=== PATIENT | male | born 1965 | race Caucasian/White ===

== ENCOUNTER 2019-05-03 17:31 | Emergency (ER) | payer OTHER ==
[~2019-05-03] VITALS: Ht 182.9 cm; Wt 130.6 kg
[2019-05-03 17:40] VITALS: BP 165/94
--- NOTE | 2019-05-03 18:03 | NUR ---
PATIENT AMBULATED TO BED 2
--- NOTE | 2019-05-03 18:07 | NUR ---
PATIENT PRESENTS TO ED WITH LEFT EAR PAIN, THROAT PAIN, PAINFUL SWALLOWING, HEADACHE X 2 DAYS. TOOK AMOXILLIN 500 MG AND IBUPROFEN 800MG LAST DOSE 1000. PATIENT STATES PAIN OF 8/10 AT THIS TIME; VSS; PATIENT POSITIONED FOR COMFORT; HOB ELEVATED; BEDRAILS UP X2; BED DOWN. ER MD MADE AWARE OF PT STATUS.
--- NOTE | 2019-05-03 18:20 | NUR ---
Patient being evaluated by physician at bedside.
[2019-05-03] MEDS ORDERED: KETOROLAC 60 MG/2 ML VIAL IM ONE (18:25)
[2019-05-03 19:14] VITALS: BP 148/88
--- NOTE | 2019-05-03 19:14 | NUR ---
Patient discharged with v/s stable. Written and verbal after care instructions given and explained. Rx of IBUPROFEN, CIPRODEX, AMOXICILLIN given. Patient educated on indication of medication including possible reaction and side effects. All questions addressed prior to discharge. ID band removed. Patient advised to follow up with PMD.
== END 2019-05-03 19:14 | disposition home or self-care (01) ==
LOC: MED 17:31
DX: H92.02 Otalgia, left ear (principal); R03.0 Elevated blood-pressure reading, without diagnosis of hypertension; J02.9 Acute pharyngitis, unspecified
CPT/HCPCS: 96372; 99283; J1885

== ENCOUNTER 2020-06-15 02:33 | Emergency (ER) | payer OTHER ==
[~2020-06-15] VITALS: Ht 182.9 cm; Wt 127.0 kg
[2020-06-15 02:45] VITALS: BP 147/83
--- NOTE | 2020-06-15 02:45 | NUR ---
PT IN BED 3 WITH SON AND AT BEDSIDE.
--- NOTE | 2020-06-15 03:08 | NUR ---
54 Y/O MALE PT BIB SELF FOR C/O ANXIETY X A FEW HOURS. PER PT HAD TO PERFORM CPR ON SON AND NOW IS TEARFUL AND WANTS TO BE EVALUATED. DENIES PAIN, FEVER, COUGH. MEDHX: ANXIETY NKA
[2020-06-15 03:11] LABS: BASOPHILS # (AUTO) 0.1 K/uL (0.00-0.22); BASOPHILS % (AUTO) 0.5 % (0.0-2.0); EOSINOPHILS # (AUTO) 0.5 K/uL (0-0.4); EOSINOPHILS % (AUTO) 4.2 % (0.0-4.0); HEMATOCRIT 43.8 % (36-52); HEMOGLOBIN 14.6 g/dL (12.0-18.0); LYMPHOCYTES # (AUTO) 1.9 K/uL (2.0-11.5); LYMPHOCYTES % (AUTO) 15.7 % (20.5-51.1); MEAN CORPUSCULAR HEMOGLOBIN 31 pg (27-31); MEAN CORPUSCULAR HGB CONC 33 g/dL (33-37); MEAN CORPUSCULAR VOLUME 91.3 fL (80-94); MONOCYTES # (AUTO) 0.7 K/uL (0.8-1.0); MONOCYTES % (AUTO) 6.1 % (1.7-9.3); NEUTROPHILS # (AUTO) 8.9 K/uL (1.8-7.7); NEUTROPHILS % (AUTO) 73.5 % (42.2-75.2); PLATELET COUNT (AUTO) 181 K/uL (140-450); RED CELL DISTRIBUTION WIDTH 12.6 % (11.6-13.7); WHITE BLOOD COUNT (AUTO) 12.1 K/uL (4.8-10.8)
[2020-06-15 03:33] LABS: CHOL/HDL RATIO 7.5 (1-4.5)
[2020-06-15 03:41] LABS: ALBUMIN 3.9 g/dL (3.4-5.0); ANION GAP 15.9 (8-16); CARBON DIOXIDE 24.1 mmol/L (21-32); CREATININE 1.8 mg/dL (0.6-1.3); TOTAL BILIRUBIN 0.3 mg/dL (0.0-1.0)
[2020-06-15 03:47] LABS: CREATINE KINASE MB 1.4 ng/mL (0-3.6)
--- NOTE | 2020-06-15 03:58 | NUR ---
DR MYERS AT BEDSIDE
[2020-06-15 04:00] VITALS: BP 147/83
--- NOTE | 2020-06-15 04:00 | NUR ---
Patient discharged with v/s stable. Written and verbal after care instructions given and explained. Patient alert, oriented and verbalized understanding of instructions. Ambulatory with steady gait. All questions addressed prior to discharge. ID band removed. Patient advised to follow up with PMD. Opportunity to ask questions provided and answered.
== END 2020-06-15 04:00 | disposition home or self-care (01) ==
LOC: MED 02:33
DX: F41.9 Anxiety disorder, unspecified (principal)
CPT/HCPCS: 36415; 71045; 80053; 82550; 82553; 83880; 84484; 85025; 85379; 93005; 99285

== ENCOUNTER 2022-02-20 22:09 | Emergency (ER) | payer OTHER ==
[~2022-02-20] VITALS: Ht 182.9 cm; Wt 133.8 kg
[2022-02-20 22:20] VITALS: BP 147/99
--- NOTE | 2022-02-20 22:32 | NUR ---
Wheel chair to bed 5.
--- NOTE | 2022-02-20 23:15 | NUR ---
ERMD AT BEDSIDE ASSESSING PATIENT
--- NOTE | 2022-02-20 23:20 | NUR ---
C/O lower back pain x 1 month. Patient reported, had lower back pain, radiate to bilateral legs PMHx : Sciatica
[2022-02-20] MEDS ORDERED: HYDROcodone/APAP 10/325 MG 1 TAB TAB PO ONE (23:30)
[2022-02-20] MEDS ORDERED: GABA300C PO (23:30)
[2022-02-20] MEDS ORDERED: KETOROLAC 60 MG/2 ML VIAL IM ONE (23:30)
[2022-02-20] MEDS ORDERED: IBUP-2218 PO (23:30)
[2022-02-20] MEDS ORDERED: GABAPENTIN 300 MG CAP PO ONE (23:30)
--- NOTE | 2022-02-20 23:30 | NUR ---
PATIENT VSS, IN BED RESTING, SIDE RAIL UP FOR SAFETY. BED LOCKED AND LOW. ALL NEEDS MET
[2022-02-20 23:55] VITALS: BP 135/78
--- NOTE | 2022-02-20 23:55 | NUR ---
Patient discharged with v/s stable. Written and verbal after care instructions given on elder sciatica pain and explained. Patient alert, oriented and verbalized understanding of instructions. Ambulatory with steady gait. All questions addressed prior to discharge. ID band removed. Patient advised to follow up with PMD. Rx of gabapentin and Ibuprofen given.
--- NOTE | 2022-02-21 00:23 | NUR ---
The patient's care was reviewed and supervised by Delaney Erickson RN.
== END 2022-02-20 23:55 | disposition home or self-care (01) ==
LOC: MED 22:09
DX: M54.50 Low back pain, unspecified (principal); I10 Essential (primary) hypertension; Z79.899 Other long term (current) drug therapy
CPT/HCPCS: 96372; 99285; J1885

== ENCOUNTER 2022-12-08 18:13 | Inpatient (IN) | payer OTHER ==
[~2022-12-08] VITALS: Ht 182.9 cm; Wt 127.5 kg
[~2022-12-08 18:13] MED LIST: GABA300C PO; IBUP-2218 PO
[2022-12-08 18:31] VITALS: BP 141/80
--- NOTE | 2022-12-08 18:33 | NUR ---
PT AMB TO BED 9
[2022-12-08] MEDS ORDERED: PANTOPRAZOLE 40 MG INJ VIAL IVP ONE (18:55)
--- NOTE | 2022-12-08 19:09 | NUR ---
First contact with pt. Pt bibs for dark stool x 2 days. Pt denies trauama. Pt has 2/10 pain in lower abd, non radiating, ache, constant. Pt is a/o x 4, vss, no ss of acute distress, breathing equal and unlabored, speech clear. Pt on monitor.
[2022-12-08 19:20] LABS: BASOPHILS # (AUTO) 0.1 K/uL (0.00-0.22); BASOPHILS % (AUTO) 0.4 % (0.0-2.0); EOSINOPHILS # (AUTO) 0.4 K/uL (0-0.4); EOSINOPHILS % (AUTO) 2.4 % (0.0-4.0); HEMATOCRIT 40.8 % (36-52); HEMOGLOBIN 13.6 g/dL (12.0-18.0); LYMPHOCYTES # (AUTO) 2.5 K/uL (2.0-11.5); LYMPHOCYTES % (AUTO) 15.2 % (20.5-51.1); MEAN CORPUSCULAR HEMOGLOBIN 30 pg (27-31); MEAN CORPUSCULAR HGB CONC 33 g/dL (33-37); MEAN CORPUSCULAR VOLUME 89.5 fL (80-94); MONOCYTES # (AUTO) 1.1 K/uL (0.8-1.0); MONOCYTES % (AUTO) 6.8 % (1.7-9.3); NEUTROPHILS # (AUTO) 12.3 K/uL (1.8-7.7); NEUTROPHILS % (AUTO) 75.2 % (42.2-75.2); PLATELET COUNT (AUTO) 239 K/uL (140-450); RED BLOOD CELL COUNT(AUTO) 4.56 MIL/uL (4.20-6.10); RED CELL DISTRIBUTION WIDTH 12.8 % (11.6-13.7); WHITE BLOOD COUNT (AUTO) 16.3 K/uL (4.8-10.8)
--- NOTE | 2022-12-08 19:31 | NUR ---
REPORT FROM FARTUN GODINEZ
[2022-12-08 19:35] LABS: ANION GAP 12.5 (8-16); CARBON DIOXIDE 27.7 mmol/L (21-32); CREATININE 1.3 mg/dL (0.6-1.3); POTASSIUM 4.2 mmol/L (3.5-5.1); PROTHROMBIN TIME 10.8 secs (10.8-13.4); TOTAL BILIRUBIN 0.4 mg/dL (0.0-1.0)
--- NOTE | 2022-12-08 19:53 | NUR ---
BELONGINGS LIST DONE.
[2022-12-08] MEDS ORDERED: ASPI-1822 PO (19:55)
[2022-12-08] MEDS ORDERED: LISI2.5T12 PO (19:55)
--- NOTE | 2022-12-08 19:55 | NUR ---
EDUCATED PT ON PLAN FOR ADMISSION. PT VERBALIZED UNDERSTANDING. NAD NOTED AT THIS TIME. PT AOX4. ADMITS TO STOMACH "DISCOMFORT" DENIES PAIN.
[2022-12-08] MEDS ORDERED: MAG SULF 2000 MG/WATER PREMIX 50 ML IV PRN (21:00)
[2022-12-08] MEDS ORDERED: MORPHINE SULFATE 4 MG/ML SYR IVP PRN (21:00)
[2022-12-08] MEDS ORDERED: ACETAMINOPHEN 325 MG TAB PO PRN (21:00)
[2022-12-08] MEDS ORDERED: ONDANSETRON 4 MG/2 ML VIAL IVP PRN (21:00)
[2022-12-08] MEDS ORDERED: POTASSIUM CHLORIDE 10 MEQ TABER PO PRN (21:00)
[2022-12-08] MEDS ORDERED: HYDROcodone/APAP 5/325 MG 1 TAB TAB PO PRN (21:00)
[2022-12-08] MEDS ORDERED: MAGNESIUM OXIDE 400 MG TAB PO PRN (21:00)
[2022-12-08] MEDS ORDERED: KCL 20 MEQ/WATER INJ PREMIX 200 ML IV PRN (21:00)
--- NOTE | 2022-12-08 21:01 | NUR ---
PT AT BEDSIDE TO MAKE ARRANGEMENTS FOR PT ADMISSION
[2022-12-08] MEDS: NACL 0.9% 1,000 ML IV SCH (21:13)
--- NOTE | 2022-12-08 22:06 | NUR ---
Patient will be admitted to care of DR. GRIGSBY. Admited to MED SURG. Will go to room 119B. Belongings list completed. Report to STEPHANIE GODINEZ.
[2022-12-08 22:50] VITALS: BP 122/73
--- NOTE | 2022-12-08 22:50 | NUR ---
RECEIVED PATIENT A NEW ADMIT FROM ER. PATIENT IS AWAKE, ALERT AND ORIENTED. DENIES PAIN AT THIS TIME. NO ACUTE RESPIRATORY DISTRESS NOTED. IVF INFUSING WELL ORDERED. SKIN WARM AND DRY TO TOUCH. SAFETY PRECAUTIONS IN PLACE, CALL LIGHT IN REACH, INSTRUCTED TO CALL IF ASSISTANCE IS NEEDED, PT VERBALLY AGREED.
--- NOTE | 2022-12-09 01:53 | NUR ---
PATIENT IS ASLEEP. BREATHING EVEN AND UNLABORED. CALL LIGHT IN REACH.
[2022-12-09 05:26] LABS: BASOPHILS % (AUTO) 0.2 % (0.0-2.0); EOSINOPHILS # (AUTO) 0.5 K/uL (0-0.4); EOSINOPHILS % (AUTO) 3.7 % (0.0-4.0); HEMATOCRIT 36.5 % (36-52); HEMOGLOBIN 12.1 g/dL (12.0-18.0); LYMPHOCYTES # (AUTO) 2.9 K/uL (2.0-11.5); LYMPHOCYTES % (AUTO) 20.7 % (20.5-51.1); MEAN CORPUSCULAR HEMOGLOBIN 30 pg (27-31); MEAN CORPUSCULAR HGB CONC 33 g/dL (33-37); MEAN CORPUSCULAR VOLUME 90.3 fL (80-94); MONOCYTES # (AUTO) 0.9 K/uL (0.8-1.0); MONOCYTES % (AUTO) 6.8 % (1.7-9.3); NEUTROPHILS # (AUTO) 9.5 K/uL (1.8-7.7); NEUTROPHILS % (AUTO) 68.6 % (42.2-75.2); PLATELET COUNT (AUTO) 194 K/uL (140-450); RED BLOOD CELL COUNT(AUTO) 4.05 MIL/uL (4.20-6.10); RED CELL DISTRIBUTION WIDTH 12.9 % (11.6-13.7); WHITE BLOOD COUNT (AUTO) 13.8 K/uL (4.8-10.8)
[2022-12-09] MEDS: NACL 0.9% 1,000 ML IV SCH ×2 (05:34→20:38)
--- NOTE | 2022-12-09 06:19 | NUR ---
PATIENT IS ASLEEP. NO DISTRESS NOTED. ALL NEEDS ATTENDED TO. SAFETY PRECAUTIONS MAINTAINED DURING THE SHIFT, CALL LIGHT REMAINS WITHIN REACH.
[2022-12-09 06:47] LABS: ALBUMIN 3.6 g/dL (3.4-5.0); ANION GAP 10.6 (8-16); CARBON DIOXIDE 30.5 mmol/L (21-32); CREATININE 1.3 mg/dL (0.6-1.3); MAGNESIUM 1.5 mg/dL (1.8-2.4); POTASSIUM 4.1 mmol/L (3.5-5.1); TOTAL BILIRUBIN 0.5 mg/dL (0.0-1.0)
--- NOTE | 2022-12-09 07:30 | NUR ---
RECIEVED PATIENT FROM ULTRA SOUND TECHNICIAN NURSE,ALL SAFETY MEASURES IN PLACE.VITALS ARE STABLE,NO SO DISTRESS NOTED.POC DISCUSSED.WILL CONTINUE TO MONITOR.
[2022-12-09 08:00] VITALS: BP 107/56
[2022-12-09] MEDS: PANTOPRAZOLE 40 MG INJ VIAL IVP SCH ×2 (09:07→20:34)
--- NOTE | 2022-12-09 09:14 | NUR ---
PATIENT HAS BEEN SCREENED AND CATEGORIZED MODERATE NUTRITION RISK. PATIENT WILL BE SEEN WITHIN 3-5 DAYS OF ADMISSION. REVIEWED BY KATHY FREDERICK RD
[2022-12-09] MEDS ORDERED: MIDAZOLAM 2 MG/2 ML VIAL ONE ×2 (13:56→14:49)
[2022-12-09] MEDS ORDERED: fentaNYL citrate 0.05 MG/ML VIAL ONE ×2 (13:56→14:49)
--- NOTE | 2022-12-09 14:21 | NUR ---
DC PLANNING 1055AM: ATTEMPTED TO MEET PT AT BEDSIDE TO COMPLETE ASSESSMENT, HOWEVER PT HEAVILY SLEEPING AND DID NOT WAKE TO NAME BEING CALLED SEVERAL TIMES 12:00PM: 2ND ATTEMPT MADE TO MEET WITH PT AT BEDSIDE TO COMPLETE ASSESSMENT, HOWEVER, PT STILL HEAVILY SLEEPING AND WOULD NOT WAKE TO NAME BEING CALLED. . SW TO FOLLOW. SW TO ATTEMPT 12/10
--- NOTE | 2022-12-09 14:36 | NUR ---
PATIENT LEFT THE UNIT FOR EGD,OR NURSE AT BEDSIDE,VITALS ARE STABLE.[id number]
--- NOTE | 2022-12-09 15:49 | NUR ---
PATIENT CAME BACK FROM PROCEDURE,VITALS ARE STABLE.NO SO DISTRESS NOTED.WILL CONTINUE TO MONITOR.
[2022-12-09 16:00] VITALS: BP 128/63
--- NOTE | 2022-12-09 19:30 | NUR ---
RECEIVED PT IN BED AWAKE,ALERT AND ORIENTED X 4. DENIES PAIN AT THIS TIME. DENIES SHORTNESS OF BREATH. SKIN WARM AND DRY TO TOUCH. SAFETY PRECAUTION IN PLACE, CALL LIGHT IN REACH.
[2022-12-10] VITALS: BP 143/74
[2022-12-10 05:26] LABS: BASOPHILS # (AUTO) 0.1 K/uL (0.00-0.22); BASOPHILS % (AUTO) 0.4 % (0.0-2.0); EOSINOPHILS # (AUTO) 0.6 K/uL (0-0.4); EOSINOPHILS % (AUTO) 3.9 % (0.0-4.0); HEMATOCRIT 39.2 % (36-52); HEMOGLOBIN 13.1 g/dL (12.0-18.0); LYMPHOCYTES # (AUTO) 3.7 K/uL (2.0-11.5); LYMPHOCYTES % (AUTO) 22.9 % (20.5-51.1); MEAN CORPUSCULAR HEMOGLOBIN 30 pg (27-31); MEAN CORPUSCULAR HGB CONC 33 g/dL (33-37); MONOCYTES # (AUTO) 0.8 K/uL (0.8-1.0); MONOCYTES % (AUTO) 4.7 % (1.7-9.3); NEUTROPHILS # (AUTO) 11.1 K/uL (1.8-7.7); NEUTROPHILS % (AUTO) 68.1 % (42.2-75.2); PLATELET COUNT (AUTO) 234 K/uL (140-450); RED BLOOD CELL COUNT(AUTO) 4.35 MIL/uL (4.20-6.10); RED CELL DISTRIBUTION WIDTH 12.8 % (11.6-13.7); WHITE BLOOD COUNT (AUTO) 16.3 K/uL (4.8-10.8)
[2022-12-10 06:12] LABS: ALBUMIN 3.9 g/dL (3.4-5.0); ANION GAP 9.1 (8-16); CARBON DIOXIDE 30.8 mmol/L (21-32); CREATININE 1.1 mg/dL (0.6-1.3); MAGNESIUM 1.7 mg/dL (1.8-2.4); POTASSIUM 3.9 mmol/L (3.5-5.1); TOTAL BILIRUBIN 0.6 mg/dL (0.0-1.0)
--- NOTE | 2022-12-10 06:14 | NUR ---
PATIENT IS ASLEEP. ALL NEEDS ATTENDED TO. NO DISTRESS NOTED. SAFETY PRECAUTIONS IN PLACE,CALL LIGHT REMAINS WITHIN REACH.
--- NOTE | 2022-12-10 07:10 | NUR ---
RECEIVED REPORT FROM MOLD LAMINATOR NURSE, STEPHANIE, FOR CONTINUITY OF CARE. PT IS SLEEPING AT THIS TIME. RESPIRATIONS ARE EVEN AND UNLABORED ON ROOM AIR. NO SIGNS OF DISTRESS NOTED.
[2022-12-10] MEDS ORDERED: MIDAZOLAM 2 MG/2 ML VIAL IVP ONE ×2 (07:30→16:10)
[2022-12-10] MEDS ORDERED: fentaNYL citrate 0.05 MG/ML VIAL IVP ONE ×2 (07:30→16:10)
[2022-12-10 08:00] VITALS: BP 136/73
[2022-12-10] MEDS ORDERED: CEPH-588 PO (08:40)
[2022-12-10] MEDS ORDERED: PANT40EC PO (08:40)
[2022-12-10] MEDS: PANTOPRAZOLE 40 MG INJ VIAL IVP SCH (09:01)
--- NOTE | 2022-12-10 10:20 | NUR ---
PT HAS DISCHARGE ORDER. WENT TO INFORM PT. PT UPSET STATING THAT HE DOESN'T EVEN KNOW WHAT IS WRONG WITH HIM AND THAT NO ONE HAS GIVEN HIM ANY INFORMATION. EDUCATED PT ON PROCEDURE COMPLETED AND FINDINGS. RE-EDUCATED PT ON NSAID ABUSE. PT STATED "ITS THE ONLY THING THAT WORKS. AND YOU GUYS DIDNT EVEN BOTHER TO FIX MY ARTHRITIS". EDUCATED PT ABOUT FOLLOWING UP WITH PCP. PT STATES HE HAS NO PCP AT THIS TIME, HOWEVER STATES HE WILL LOOK FOR ONE.
[2022-12-10] MEDS: NACL 0.9% 1,000 ML IV SCH (10:42)
[2022-12-10 10:47] VITALS: BP 136/73
--- NOTE | 2022-12-10 11:43 | NUR ---
WENT OVER DISCHARGE PAPERWORK WITH PT. ANSWERED ALL QUESTIONS. PT SIGNED ALL PAPERWORK. PT AWAITING FAMILY TO PICK HIM UP.
--- NOTE | 2022-12-10 12:09 | NUR ---
PT DISCHARGED HOME. ALL BELONGINGS TAKEN UPON DISCHARGE. IV REMOVED, IV CATHETER INTACT.
== END 2022-12-10 12:05 | disposition home or self-care (01) | DRG 241 ==
LOC: MED 18:13 → MMU 20:58 → MTU 22:01
PROVIDERS: ADMIT Student in an Organized Health Care Education/Training Program; ATTEND Student in an Organized Health Care Education/Training Program
PROC: 0DB68ZX Excision of Stomach, Via Natural or Artificial Opening Endoscopic, Diagnostic (ICD-10-PCS; principal; 2022-12-09 15:20)
DX: K29.01 Acute gastritis with bleeding (principal); K22.11 Ulcer of esophagus with bleeding; R65.10 Systemic inflammatory response syndrome (SIRS) of non-infectious origin without acute organ dysfunction; D62 Acute posthemorrhagic anemia; D50.9 Iron deficiency anemia, unspecified; F17.210 Nicotine dependence, cigarettes, uncomplicated; E66.9 Obesity, unspecified; I10 Essential (primary) hypertension; T39.395A Adverse effect of other nonsteroidal anti-inflammatory drugs [NSAID], initial encounter; K21.00 Gastro-esophageal reflux disease with esophagitis, without bleeding; Z20.822 Contact with and (suspected) exposure to COVID-19; M19.90 Unspecified osteoarthritis, unspecified site; R73.9 Hyperglycemia, unspecified; Z68.38 Body mass index [BMI] 38.0-38.9, adult; Y92.89 Other specified places as the place of occurrence of the external cause
CPT/HCPCS: 36415; 80053; 83690; 83735; 85025; 85610; 85730; 86677; 86886; 86900; 86901; 87081; 96374; 99285; C9113; J2250; J3010